=== PATIENT | female | born 1965 | race African-American/Black ===

== ENCOUNTER 2022-08-19 08:39 | Emergency (ER) | payer OTHER ==
[~2022-08-19] VITALS: Ht 157.5 cm; Wt 97.1 kg
[2022-08-19 08:50] VITALS: BP 145/84
--- NOTE | 2022-08-19 08:58 | NUR ---
56 Y/O FEMALE BIB SELF C/O SHARP CHEST PAIN RADIATING TO THE LEFT [id number], WITH INCREASING PAIN TODAY, PER PT PAIN IS EXACERBATED BY BREATHING DEEPLY. TOOK MOTRIN LAST NIGHT WITH MINIMAL RELIEF, DENIES ANY NV, ABD PAIN, DIZZINESS, BLURRING OF VISION NKA PMH: DENIES
--- NOTE | 2022-08-19 08:58 | NUR ---
DR KLEIN AT BEDSIDE FOR EVAL
[2022-08-19 09:48] LABS: BASOPHILS % (AUTO) 0.6 % (0.0-2.0); HEMATOCRIT 37.6 % (36-48); HEMOGLOBIN 12.1 g/dL (12.0-16.0); LYMPHOCYTES # (AUTO) 1.6 K/uL (2.5-16.5); LYMPHOCYTES % (AUTO) 33.3 % (20.5-51.1); MEAN CORPUSCULAR HEMOGLOBIN 28 pg (27-31); MEAN CORPUSCULAR HGB CONC 32 g/dL (33-37); MEAN CORPUSCULAR VOLUME 87.4 fL (80-94); MONOCYTES # (AUTO) 0.3 K/uL (0.8-1.0); MONOCYTES % (AUTO) 6.9 % (1.7-9.3); NEUTROPHILS # (AUTO) 2.8 K/uL (1.8-7.7); NEUTROPHILS % (AUTO) 58.2 % (42.2-75.2); PLATELET COUNT (AUTO) 251 K/uL (140-450); RED BLOOD CELL COUNT(AUTO) 4.31 MIL/uL (4.20-5.40); RED CELL DISTRIBUTION WIDTH 13.9 % (11.6-13.7); WHITE BLOOD COUNT (AUTO) 4.8 K/uL (4.8-10.8)
[2022-08-19 10:32] LABS: ALBUMIN 4.2 g/dL (3.4-5.0); CARBON DIOXIDE 28.4 mmol/L (21-32); CREATININE 0.6 mg/dL (0.6-1.3); POTASSIUM 3.4 mmol/L (3.5-5.1); TOTAL BILIRUBIN 0.9 mg/dL (0.0-1.0)
[2022-08-19 10:49] LABS: PROTHROMBIN TIME 13.6 secs (10.8-13.4)
[2022-08-19 10:54] VITALS: BP 135/76
--- NOTE | 2022-08-19 11:41 | NUR ---
Patient discharged with v/s stable. Written and verbal after care instructions given and explained. Patient verbalized understanding. Ambulatory with steady gait. All questions addressed prior to discharge. Advised to follow up with PMD.
== END 2022-08-19 11:41 | disposition home or self-care (01) ==
LOC: MED 08:39
DX: R07.9 Chest pain, unspecified (principal); R06.02 Shortness of breath; F17.200 Nicotine dependence, unspecified, uncomplicated
CPT/HCPCS: 36415; 71045; 80053; 83880; 84484; 85025; 85379; 85610; 85730; 93005; 99285